=== PATIENT | male | born 1975 | race Caucasian/White ===

== ENCOUNTER 2018-03-21 14:01 | Emergency (ER) | payer SELFPAY ==
[2018-03-21 15:29] LABS: ADD MAN DIFF? NO
[2018-03-21 15:31] LABS: WHITE BLOOD COUNT 10.4 10^3/ul (4.8-10.8)
[2018-03-21 15:31] LABS: BASOPHIL # 0.1 10^3/ul (0.0-0.1); BASOPHILS % 0.5 % (0.0-2.0); EOSINOPHILS # 0.1 10^3/ul (0.0-0.5); EOSINOPHILS % 0.6 % (0.0-7.0); HEMATOCRIT 44.7 % (42.0-52.0); HEMOGLOBIN 14.4 g/dl (14.0-18.0); LYMPHOCYTES # 2.3 10^3/ul (0.8-2.9); LYMPHOCYTES % 21.9 % (15.0-51.0); MEAN CORPUSCULAR HEMOGLOBIN 27.3 pg (29.0-33.0); MEAN CORPUSCULAR HGB CONC 32.2 g/dl (32.0-37.0); MEAN CORPUSCULAR VOLUME 84.8 fl (82.0-101.0); MONOCYTE # 0.6 10^3/ul (0.3-0.9); MONOCYTES % 5.9 % (0.0-11.0); NEUTROPHIL # 7.4 10^3/ul (1.6-7.5); NEUTROPHILS % 70.6 % (39.0-77.0); PLATELET COUNT 246 10^3/UL (140-415); RED BLOOD COUNT 5.27 10^6/ul (4.70-6.10); RED CELL DISTRIBUTION WIDTH 13.4 % (11.5-14.5)
[2018-03-21 15:38] LABS: ANION GAP 10 (5-13); BLOOD UREA NITROGEN 8 mg/dl (7-20); CALCIUM 9.3 mg/dl (8.4-10.2); CARBON DIOXIDE 28 mmol/L (21-31); CHLORIDE 102 mmol/L (97-110); CREATININE 0.98 mg/dl (0.61-1.24); Estimated GFR > 60 mL/min (>60); GLUCOSE 113 mg/dl (70-220); SODIUM 140 mmol/L (135-144)
[2018-03-21 15:50] LABS: TROPONIN-I < 0.012 ng/ml (0.000-0.120)
[2018-03-21] MEDS ORDERED: KETOROLAC 30 MG INJ (17:09)
[2018-03-21] MEDS: KETOROLAC 30 MG INJ IV (17:13)
[2018-03-21 19:30] LABS: TROPONIN-I < 0.012 ng/ml (0.000-0.120)
[2018-03-21] MEDS: LIDOCAINE 1% (MPF) 5 ML VIAL INJ (19:40)
== END 2018-03-21 19:50 | disposition home or self-care (01) ==
LOC: E/R 14:01
DX: R07.9 Chest pain, unspecified (principal); D17.9 Benign lipomatous neoplasm, unspecified
CPT/HCPCS: 36415; 71045; 80048; 84484; 85025; 85378; 93005; 96374; 99285-25